=== PATIENT | female | born 1995 | race Caucasian/White ===

== ENCOUNTER 2018-11-11 01:02 | Emergency (ER) | payer OTHER ==
[2018-11-11 01:24] LABS: PLATELET COUNT 189 10^3/uL (150-400)
--- NOTE | 2018-11-11 02:09 | EDPHY ---
H & P Stated Complaint: SI, plan but won't disclose - Personal History LMP (Females 10-55): 8-14 Days Ago Current Tetanus Diphtheria and Acellular Pertussis (TDAP): Yes - Medical/Surgical History Hx Asthma: No Hx Chronic Respiratory Disease: No Hx Diabetes: No Hx Cardiac Disease: No Hx Renal Disease: No Hx Cirrhosis: No Hx Alcoholism: No Hx HIV/AIDS: No Hx Splenectomy or Spleen Trauma: No Other PMH: Depression, anxiety - Social History Smoking Status: Never smoked Time Seen by Provider: 11/11/18 02:01 HPI/ROS: Chief Complaint: Depression, suicidal ideation HPI: 23-year-old woman with a history of depression in the past who is been having worsening depression for the last month. She has been having suicidal ideation. Formed a plan to slit her the list yesterday. Patient being brought in for evaluation. She is currently feeling suicidal. Denies any other ingestions. No prior hospitalizations or suicide attempts in the past. She has been on depression medications and she was 10 years old. Currently is taking Prozac and was recently started on Wellbutrin. Denies any other medical problems. She is not currently akanksha for safety. Does admit to drinking alcohol tonight. ROS: 10 systems were reviewed and were negative except those elements noted in the HPI. PMH: Depression Social History: No smoking, occasional alcohol, no recreational drug use Family History: non-contributory Physical Exam: Gen: Awake, Alert, No Distress HEENT: Nose: no rhinorrhea Eyes: PERRLA, EOMI Mouth: Moist mucosa Neck: Supple, no JVD Chest: nontender, lungs clear to auscultation Heart: S1, S2 normal, no murmur Abd: Soft, non-tender, no guarding Back: no CVA tenderness, no midline tenderness Ext: no edema, non-tender Skin: no rash Neuro: CN II-XII intact, Sensation grossly intact, Strength 5/5 in bilateral upper and lower extremities (Sergey Saldivar) Constitutional: Initial Vital Signs Temperature (C) 36.8 C 11/11/18 01:03 Heart Rate 72 11/11/18 01:03 Respiratory Rate 18 11/11/18 01:03 Blood Pressure 123/97 H 11/11/18 01:03 O2 Sat (%) 97 11/11/18 01:03 O2 Delivery Mode Room Air Allergies/Adverse Reactions: No Known Allergies Allergy (Unverified 11/11/18 01:05) Home Medications: Medication Instructions Recorded Prozac 10 MG (*) 11/11/18 Wellbutrin Sr 11/11/18 Medical Decision Making ED Course/Re-evaluation: 9:30 a.m. Patient has been evaluated by mental health. They feel she is appropriate for outpatient management. She has good support system and follow- up mental health. She contracts for safety. (Ritchie Judd) 23-year-old with suicidal ideation, plan to slit her wrist. History of depression. I placed on a mental health hold. Medical screening labs have been sent. She will need a mental health evaluation morning. [address] patient signed out to Dr. Judd pending mental health evaluation. (Sergey Saldivar) - Data Points Laboratory Results: Laboratory Results 11/11/18 01:15 11/11/18 01:15 Departure - Departure Disposition: Home, Routine, Self-Care Clinical Impression: Suicidal ideation Depression Qualifiers: Depression Type: reactive depression Qualified Code(s): F32.9 - Major depressive disorder, single episode, unspecified Condition: Good Instructions: Depression (ED) Additional Instructions: Keep your follow-up mental health appointments. Utilize resources provided to you by mental health Return for further thoughts of harming yourself or others Referrals: NONE *PRIMARY CARE P,. [Primary Care Provider] - As per Instructions [facility] [Outside] - As per Instructions
[2018-11-11 10:08] VITALS: BP 123/75
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
--- NOTE | 2018-11-11 11:06 | ASMTTCLDSP ---
TLC Discharge Disposition Disposition: Answers: Discharge If Answers: Yes DISCHARGED: Patient/family given suicide hotline info & [facility] brochure? Disposition Notes: Notes: Pt stated commitment or ability to keep self safe, denied thoughts of self harm or harm to others. Pt expressed a desire to f/u with [facility] program today. Has [facility] therapist appointment on 11/14/18 at 2 pm and psychiatrist appointment with Zohra Drake MD on Sunday11/15/18. Pt was given local hotline information and [facility] brochure After an Attempt and encouraged to follow up with [facility] today. Discharge Concerns/Recommendations: Notes: In consultation with [facility] ED physician, Ritchie Judd MD, Dr. Judd concurred that pt does not appear to meet 27-65 criteria requiring psychiatric hospitalization as pt does not appear to be an imminent risk of harm to self/others/gravely disabled due to a mental illness condition. Dr. Judd provided verbal order read back vacating M1 hold at 0930 hrs. Was patient given the Answers: Not applicable Inpatient Behavioral Health Prohibited Belongings List while in the ED? Psychiatrist vacating M1 Ritchie Judd MD Hold: Date and time M1 hold 11/11/2018 09:30 AM vacated (time format is hh:mm): Type of Hold: Answers: M1/72-hour Hold Hold initiated by: Answers: ED Physician Date Signed: 11/11/2018 11:05 AM Electronically Signed By:Gordo Bhakta
== END 2018-11-11 10:11 | disposition home or self-care (01) ==
DX: R45.851 Suicidal ideations (principal); F32.9 Major depressive disorder, single episode, unspecified; Z79.899 Other long term (current) drug therapy
CPT/HCPCS: 80305; G0480